=== PATIENT | female | born 1965 | race Caucasian/White ===

== ENCOUNTER → 2020-05-29 13:31 | Outpatient (CLI) | payer BC, SELFPAY | PROVIDERS: Visit Provider Family Medicine Hospice and Palliative Medicine | DX: Z11.59 Encounter for screening for other viral diseases (principal) | CPT/HCPCS: 87635; 94799; U0003 ==

== ENCOUNTER 2022-10-22 08:12 | Day surgery (SDC) | payer OTHER, SELFPAY ==
--- NOTE | 2022-10-22 08:45 | PCM.HP.BLA ---
History and Physical Date of Admission: 10/22/22 ANGEL BARBA, is a 56 F who presents to the office today for initial Consult. Angel established care with this clinic 08.27.22 with a referral from PCP for GERD and a choking sensation after eating. She is s/p Syed-en-y gastrc bypass in 2000 but continues to have problems with weight loss. PMH includes Factor V Leiden, PE, ALEXANDRU, hypothyroidism, HTN, VIT B12 and D deficiency. ? Pt states sx started 2 years ago feels as though its anxiety related. After taking 2 bites of food or so she feels like food comes back up. Problems are more pronounced when with other people. Takes a while to complete a meal. Does not have any issues with heartburn or reflux. No abdominal pain however does feel some pulling or discomfort when bending to the side or reaching. Bowels are normal with 1 BM a day. ROS Const Constitutional: No fatigue ENT ENT: No difficulty swallowing Gastro GI: Positive for Blood in stool and nausea/dyspepsia; No abdominal pain, belching, bloating, change in bowel habits, change in stool character, coffee ground emesis, constipation, cramping, diarrhea, heartburn, difficulty swallowing, feeling full early, excessive flatus, incontinent of stools, Vomiting blood/hematemesis, loose stools, Black,tarry stools, pain with swallowing, vomiting or other Musc Musculoskeletal: Positive for stiffness and Arthritis; No joint pain Skin Skin: No yellowing of the eye or itchy eyes Psych Psychiatric: Positive for anxiety and No depression Endo Endocrine: No fatigue Aller/Imm Allergy/Immunologic: No itchy eyes Rudolph/Lymp Hematologic/Lymphatic: No easy bleeding or easy bruising Exam Const General: cooperative and comfortable Nutritional Appearance: average body habitus and well nourished [facility] Head: normal to inspection Ears: hearing grossly normal bilaterally Nose: external nose normal Face and sinus: normal facial exam Mouth: oral mucosae normal Throat: posterior oropharynx normal Eyes General: appearance normal, both eyes and all related structures Neck Neck: normal visual inspection Chest Chest palpation & inspection: normal inspection of the chest and normal palpation of entire chest wall Resp Effort & Inspection: normal respiratory effort Auscultation: Bilateral: Clear to Auscultation Cardio Palpation: normal PMI Rate: regular rate Rhythm: regular rhythm GI Inspection: normal to inspection Auscultation: normal bowel sounds Percussion: normal to percussion Palpation: no hepatosplenomegaly Skin General: no rashes or lesions noted Neuro General: patient alert Extrem General: normal to inspection Psych Affect: normal affect Quality Reporting Tobacco Screening ([facility] 138) Smoking Status: Never smoker Assessment and Plan Assessment and Plan (1) Choking: ?Status:?Acute ?Plan: The differential diagnosis for choking could be an esophageal dysmotility disorder secondary to previous gastric bypass due to intermittent problems with, primary, secondary or tertiary peristalsis.? Also on the differential diagnosis could be hiatal hernia that can develop after a Syed-en-Y gastric bypass due to accommodation.? She will get an upper endoscopy to evaluate upper GI tract and likely she will need esophageal motility for full evaluation.? She was explained alternatives, risk, benefits include not withstanding bleeding, infection, sepsis, perforation, need for emergent surgery of 3.? She will hold her Coumadin 3 days prior to procedure. I have examined the patient and the H&P has been reviewed. There are no clinical changes since date of exam.
[2022-10-22 09:01] VITALS: BP 145/75; PULSE 77; RESP 18; TEMP 36.3; O2SAT 99; BMI 64.9
[2022-10-22 09:06] LABS: INR Fingerstick 1.8; Prothrombin Time Fingerstick 21.5 SEC (11.7-14.9)
[2022-10-22] MEDS: Lactated Ringers 1,000 ML 15 ML IV (09:11)
--- NOTE | 2022-10-22 09:30 | EGD_PTH ---
PATIENT: ANGEL BARBA LOC: EN U#:[id number] AGE/SX: 56/F ROOM: RE10/22/[address]: Dr. Yuriy Suarez DO : 1965 BED: DIS: 10/22/2022 SPEC #: [id number] RECD: 10/22/22 10:08 STATUS: TRISTON LEDY #: [id number] ROBERT: 10/22/22 09:[address]: Yuriy Suarez DEPT: SURGICAL PATHOLOGY RECD BY: Lilian Cheney ENTERED: 10/22/22 11:01 SP TYPE: EGD BIOPSY LORI DR: Dr. Regan Lacey MD Tissues: Gastric mucous membrane Procedures: Surgery Specimen Level IV HEADER OPERATION: EGD ([facility]) PRE-OP DIAGNOSIS: Choking TISSUE SUBMITTED: Gastric jejunal anastomosis biopsy MICROSCOPIC DIAGNOSIS Gastric jejunal anastomosis, biopsy: Fragments of gastric and small intestinal mucosa with focal fibrosis of lamina propria and mild nonspecific chronic inflammation. See comment. SJ:ryan 10/23/2022 COMMENT Correlation with clinical, endoscopic findings and appropriate follow up are necessary. MICROSCOPIC DESCRIPTION Slides are reviewed. GROSS DESCRIPTION Received in fixative is one container labeled with the patient's name and designated gastric jejunal anastomosis biopsy. The specimen consists of multiple irregular fragments of light arguello soft tissue that in aggregate measure 0.5 x 0.5 x 0.1 cm. The specimen is totally submitted in one cassette. / MACKENZIE:ryan 10/22/2022 TC:5 CPT: 66087
[2022-10-22 09:50] VITALS: BP 129/80; BP 145/75; PULSE 79; RESP 16; TEMP 36.4; O2SAT 98
--- NOTE | 2022-10-22 09:54 | OP.EGD_ITS ---
Patient Name: Vita Zuniga Procedure Date: 10/22/2022 9:30 AM Date of : 1965 Age: 56 Procedure: Upper GI endoscopy Indications: Unexplained chest pain, Chronic cough Providers: Yuriy Suarez DO Referring MD: Yuriy Suarez DO Medicines: Monitored Anesthesia Care Patient Profile: This is a 56 year old female. Refer to note in patient chart for documentation of history and physical. Patient has symptoms of chronic chest pain, chronic cough and chronic heartburn. Complications: No immediate complications. Procedure: Pre-Anesthesia Assessment: - Prior to the procedure, a History and Physical was performed, and patient medications and allergies were reviewed. The risks and benefits of the procedure and the sedation options and risks were discussed with the patient. All questions were answered and informed consent was obtained. Patient identification and proposed procedure were verified by the nurse in the pre-procedure area. Mental Status Examination: alert and oriented. Airway Examination: normal oropharyngeal airway and neck mobility. Respiratory Examination: clear to auscultation. CV Examination: normal. Prophylactic Antibiotics: The patient does not require prophylactic antibiotics. Prior Anticoagulants: The patient has taken no previous anticoagulant or antiplatelet agents. ASA Grade Assessment: II - A patient with mild systemic disease. After reviewing the risks and benefits, the patient was deemed in satisfactory condition to undergo the procedure. The anesthesia plan was to use moderate sedation / analgesia (conscious sedation). Immediately prior to administration of medications, the patient was re-assessed for adequacy to receive sedatives. The heart rate, respiratory rate, oxygen saturations, blood pressure, adequacy of pulmonary ventilation, and response to care were monitored throughout the procedure. The physical status of the patient was re-assessed after the procedure. After obtaining informed consent, the endoscope was passed under direct vision. Throughout the procedure, the patient's blood pressure, pulse, and oxygen saturations were monitored continuously. The gastroscope was introduced through the mouth, and advanced to the third part of duodenum. The upper GI endoscopy was accomplished without difficulty. The patient tolerated the procedure well. Scope In: 9:36:00 AM Scope Out: 9:43:04 AM Total Procedure Duration Time 0 hours 7 minutes 4 seconds Findings: One benign-appearing, intrinsic stenosis was found 37 to 38 cm from the incisors. This stenosis was severe and measured 3 cm (in length). The stenosis was traversed. A guidewire was placed and the scope was withdrawn. Dilation was performed with a Savary dilator with no resistance at 42 Fr. The dilation site was examined and showed no change. Evidence of a Syed-en-Y gastrojejunostomy was found. The gastrojejunal anastomosis was characterized by erosion, erythema and inflammation. This was traversed. The tvgvp-ts-pnytovg limb was characterized by healthy appearing mucosa. The jejunojejunal anastomosis was characterized by inflammation. The dbjnqwcz-jo-zopcjrz limb was not examined as it could not be found. Biopsies were taken with a cold forceps for histology. Verification of patient identification for the specimen was done. Estimated blood loss was minimal. The examined jejunum was normal. Impression: - Benign-appearing esophageal stenosis. Dilated. - Syed-en-Y gastrojejunostomy with gastrojejunal anastomosis characterized by erosion, erythema and inflammation. Biopsied. - Normal examined jejunum. Recommendation: - Discharge patient to home. - Resume previous diet. - Continue present medications. - Await pathology results. Procedure Code(s): --- Professional --- 49525, Esophagogastroduodenoscopy, flexible, transoral; with insertion of guide wire followed by passage of dilator(s) through esophagus over guide wire [id number], 59, Esophagogastroduodenoscopy, flexible, transoral; with biopsy, single or multiple CPT copyright 2017 [employer]. All rights reserved. The codes documented in this report are preliminary and upon medical records coder review may be revised to meet current compliance requirements. Yuriy Suarez DO 10/22/2022 9:53:46 AM This report has been signed electronically. Number of Addenda: 0 Note Initiated On: 10/22/2022 9:30 AM
--- NOTE | 2022-10-22 09:54 | OP.CCLET_ITS ---
10/22/2022 Regan Lacey Re : Upper GI endoscopy procedure for Vita Lakeaaliyah Lacey This procedure was performed on Saturday, October 22, 2022. My impressions and recommendations are as follows: Impressions : - Benign-appearing esophageal stenosis. Dilated. - Syed-en-Y gastrojejunostomy with gastrojejunal anastomosis characterized by erosion, erythema and inflammation. Biopsied. - Normal examined jejunum. Recommendations : - Discharge patient to home. - Resume previous diet. - Continue present medications. - Await pathology results. My findings are described in the full procedure note, which is enclosed. If I can be of further assistance, please feel free to contact me at . Sincerely, Yuriy Suarez, 10/22/2022 9:53:46 AM This report has been signed electronically.
[2022-10-22 09:55] VITALS: BP 129/76; BP 145/75; PULSE 79; RESP 16; O2SAT 99
[2022-10-22 10:00] VITALS: BP 140/80; BP 145/75; PULSE 76; RESP 16; O2SAT 99
[2022-10-22 10:05] VITALS: BP 145/75; BP 146/83; PULSE 72; RESP 16; TEMP 36.6; O2SAT 100
[2022-10-22 10:26] VITALS: BP 145/75
== END 2022-10-22 10:47 | disposition home or self-care (01) ==
LOC: EN 08:14 → AC 08:16
PROVIDERS: PCP Family Medicine; Referring Provider Family Medicine; Visit Provider Internal Medicine Gastroenterology
PROC: 0DJ08ZZ Inspection of Upper Intestinal Tract, Via Natural or Artificial Opening Endoscopic (ICD-10-PCS; CPT 43235; principal; 2022-10-22 09:25)
DX: K22.2 Esophageal obstruction (principal); R05.3 Chronic cough; R07.9 Chest pain, unspecified; I10 Essential (primary) hypertension; E05.90 Thyrotoxicosis, unspecified without thyrotoxic crisis or storm; E55.9 Vitamin D deficiency, unspecified; F32.A Depression, unspecified; F41.8 Other specified anxiety disorders; Z98.0 Intestinal bypass and anastomosis status; Z79.01 Long term (current) use of anticoagulants; Z79.899 Other long term (current) drug therapy; Z86.16 Personal history of COVID-19; Z86.711 Personal history of pulmonary embolism
CPT/HCPCS: 43239; 43248; 36416; 85610; 88305; J2405